=== PATIENT | female | born 1940 | race Caucasian/White ===

== ENCOUNTER 2017-12-24 08:27 | Emergency (ER) | payer OTHER ==
[2017-12-24 09:22] LABS: Bicarbonate 23 mEq/L (21-31); Glucose Level 243 mg/dL (65-120); Potassium 3.7 mEq/L (3.6-5.0); Sodium Level 136 mEq/L (135-145)
[2017-12-24 09:23] LABS: BUN Blood Urea Nitrogen 13 mg/dL (6-20); Magnesium 1.6 mg/dL (1.8-2.5)
[2017-12-24 09:27] LABS: Absolute Lymphocytes (CBC) 1.8 K/uL (0.7-4.9); Absolute Monocytes 0.4 K/uL (0.1-1.3); Absolute Neutrophil 4.2 K/uL (1.8-8.0); Basophils % 1.2 % (0-1.3); Eosinophils % 2.8 % (0-4.4); Hematocrit 43.9 % (36.0-45.0); Lymphocytes % 26.4 % (15.3-44.8); MCH 28.9 pg (27.0-35.0); MCV 86.3 fL (80-100); MPV 8.4 fL (7.6-11.3); Monocytes % 5.7 % (3.3-12.3); RBC Red Blood Cell Count 5.08 M/uL (3.86-4.86)
--- NOTE | 2017-12-24 09:30 | RAD REPORT ---
EXAM DESCRIPTION: RAD - Chest Single View - 12/24/2017 9:06 am CLINICAL HISTORY: Chest pain, hypertension COMPARISON: 10/27/2008 FINDINGS: Portable technique limits examination quality. The lungs are mildly emphysematous but grossly clear. The heart is normal in size. No displaced fract ures. IMPRESSION: No acute intrathoracic process suspected.
[2017-12-24 09:38] LABS: Protime INR 0.93
[2017-12-24] MEDS ORDERED: MAGNESIUM SULFATE 1 gm IVPB 1 GM/100 ML BAG IV ONE (09:47)
[2017-12-24 10:15] LABS: Urine Blood NEGATIVE (NEG); Urine Glucose 1+ (NEG); Urine Protein NEGATIVE (NEG); Urine pH 7.5 (5.0-7.0)
[2017-12-24 10:58] LABS: Urine Bacteria >50 /HPF (<20); Urine Culture Reflex Order REFLEXED; Urine RBC NONE SEEN /HPF (NONE SEEN)
--- NOTE | 2017-12-24 11:11 | ER ---
Nurse's Notes [facility] Name: Christiana Daniel Age: 77 yrs Sex: Female : 1940 Arrival Date: 12/24/2017 Time: 08:30 Bed 4 Private MD: Diagnosis: Paroxysmal atrial fibrillation Presentation: 12/24 08:41 Presenting complaint: EMS states: pt felt dizzy this morning while getting out of bed, sg reports palpitations, denies CP, SOB, Difficulty breathing, Denies N/V/D. Transition of care: patient was not received from another setting of care. Onset of symptoms was December 24, 2017. Initial Sepsis Screen: Does the patient meet any 2 criteria? RR > 20 per min. No. Patient's initial sepsis screen is negative. Does the patient have a suspected source of infection? No. Patient's initial sepsis screen is negative. Care prior to arrival: IV initiated. 20 GA, in the left hand. 08:41 Method Of Arrival: EMS: [facility] sg 08:41 Acuity: YARON 3 sg Historical: - Allergies: 08:46 No Known Allergies; sg - Home Meds: 08:46 Aspirin Oral [Active]; Bystolic oral for Hypertension, Ventricular Rate Control in sg Atrial Fibrillation [Active]; Celebrex Oral [Active]; - PMHx: 08:46 Atrial Fib; Hypertension; sg - PSHx: 08:46 Cardiac Ablation; sg - Immunization history:: Adult Immunizations up to date. - Social history:: Smoking status: Patient/guardian denies using tobacco. Screenin:49 Abuse screen: Denies threats or abuse. Denies injuries from another. Nutritional sg screening: No deficits noted. Tuberculosis screening: No symptoms or risk factors identified. Never had TB. Fall Risk None identified. Assessment: 08:49 General: Appears in no apparent distress. comfortable, well groomed, well developed, sg well nourished, Behavior is calm, cooperative, appropriate for age. Pain: Denies pain. Neuro: Level of Consciousness is awake, alert, obeys commands, Oriented to person, place, time, situation, Multimedia Engineer are equal bilaterally Moves all extremities. Full function Gait is steady, Speech is normal, Facial symmetry appears normal, pupils are PERRL. Reports dizziness. Cardiovascular: Heart tones S1 S2 present Capillary refill is brisk in bilateral fingers Patient's skin is warm and dry. Chest pain is denied. Respiratory: Airway is patent Respiratory effort is even, unlabored, Respiratory pattern is regular, symmetrical, Breath sounds are clear. GI: No signs and/or symptoms were reported involving the gastrointestinal system. : No signs and/or symptoms were reported regarding the genitourinary system. EENT: No signs and/or symptoms were reported regarding the EENT system. Derm: Skin is pink, warm \T\ dry. Musculoskeletal: No signs and/or symptoms reported regarding the musculoskeletal system. 09:00 Reassessment: pt daughter at bedside at this time. sg 09:40 Reassessment: Patient appears in no apparent distress at this time. Patient and/or sg family updated on plan of care and expected duration. Pain level reassessed. Patient is alert, oriented x 3, equal unlabored respirations, skin warm/dry/pink. updated on results and POC, pt stated understanding, pt reports her daughter stepped out to find coffee and will return shortly Patient states feeling better. 11:31 Reassessment: Patient appears in no apparent distress at this time. Patient and/or sv family updated on plan of care and expected duration. Pain level reassessed. Patient is alert, oriented x 3, equal unlabored respirations, skin warm/dry/pink. Patient states feeling better. Vital Signs: 08:40 BP 177 / 99; Pulse 73 MON; Resp 22 S; Temp 98.7; Pulse Ox 97% on R/A; Weight 111.13 kg sg (R); Pain 0/10; 09:18 BP 177 / 88; Pulse 63; Resp 18 S; Pulse Ox 98% on R/A; sg 10:00 BP 180 / 65; Pulse 52 MON; Resp 16; Pulse Ox 98% on R/A; Pain 0/10; sg 10:00 sg 11:30 BP 166 / 70; Pulse 53; Resp 16; Pulse Ox 97% ; sv 10:00 notified of pt VS sg Vitals: 08:40 Cardiac Rhythm Assessment Sinus rhythm. sg 09:18 Cardiac Rhythm Assessment Sinus arrythmia. sg 10:00 Cardiac Rhythm Assessment Sinus kasey. sg ED Course: 08:30 Patient arrived in ED. sv 08:37 Shay Landeros MD is Attending Physician. gs 08:40 Moise Devi RN is Primary Nurse. sg 08:40 Initial lab(s) drawn, by me, sent to lab. Maintain EMS IV. Dressing intact. Site clean sg \T\ dry. Gauge \T\ site: 20 G L Hand. 08:42 Triage completed. sg 08:47 Arm band placed on. EKG completed in triage. Results shown to MD. sg 08:50 Patient has correct armband on for positive identification. Bed in low position. Call sg light in reach. 09:07 XRAY Chest (1 view) In Process Unspecified. EDMS 11:10 Jon Castellon MD is Referral Physician. gs 11:31 No provider procedures requiring assistance completed. IV discontinued, intact, sv bleeding controlled, No redness/swelling at site. Pressure dressing applied. Administered Medications: 09:51 Drug: Magnesium Sulfate 1 grams Route: IVPB; Infused Over: 1 hrs; Site: left hand; sg Outcome: 11:10 Discharge ordered by MD. gs 11:31 Discharged to home via wheelchair, with family. sv 11:31 Condition: stable 11:31 Condition: improved 11:31 Discharge instructions given to patient, family, Instructed on discharge instructions, follow up and referral plans. Demonstrated understanding of instructions, follow-up care. 11:31 Patient left the ED. sv Addendum: 12/27/2017 10:52 Addendum: Culture Results: Positive urine culture. No further action required. Other: i w culture report was reviewed by JENNIFER Fernando, pt had no urinary complaints, no further action needed . Signatures: Dispatcher [employer] Kimberlee Larson RN RN sv Gay, Steven, RN RN sg Williams, Irene, RN RN Shay Landeros MD MD Corrections: (The following items were deleted from the chart) 12/24 09:51 08:41 Care prior to arrival: IV initiated. 20 GA, in the right antecubital area, sg 09:51 08:40 Maintain EMS IV. Dressing intact. Site clean \T\ dry. Gauge \T\ site: 20 G LAC. [facility] 09:52 08:41 Care prior to arrival: IV initiated. 20 GA, in the right hand, sg
--- NOTE | 2017-12-24 11:11 | EDPHYS ---
Physician Documentation [facility] Name: Christiana Daniel Age: 77 yrs Sex: Female : 1940 Arrival Date: 12/24/2017 Time: 08:30 Bed 4 Private MD: ED Physician Shay Landeros HPI: 12/24 11:31 This 77 yrs old Female presents to ER via EMS with complaints of Afib w/RVR. gs 11:31 The patient presents with a history of irregular heart beat, heart racing. Context: The gs symptoms occur at rest. Onset: The symptoms/episode began/occurred acutely, just prior to arrival. Duration: The patient or guardian reports a single episode, that is now resolved. Modifying factors: The symptoms are aggravated by nothing. The symptoms are alleviated by nothing. Associated signs and symptoms: Pertinent positives: lightheadedness, Pertinent negatives: chest pain. Severity of symptoms: At their worst the symptoms were severe in the emergency department the symptoms have resolved. The patient has experienced similar episodes in the past, a few times. 11:35 documented afib by ems. gs Historical: - Allergies: 08:46 No Known Allergies; sg - Home Meds: 08:46 Aspirin Oral [Active]; Bystolic oral for Hypertension, Ventricular Rate Control in sg Atrial Fibrillation [Active]; Celebrex Oral [Active]; - PMHx: 08:46 Atrial Fib; Hypertension; sg - PSHx: 08:46 Cardiac Ablation; sg - Immunization history:: Adult Immunizations up to date. - Social history:: Smoking status: Patient/guardian denies using tobacco. ROS: 11:31 All other systems are negative. gs Exam: 11:31 Head/Face: Normocephalic, atraumatic. Eyes: Pupils equal round and reactive to light, gs extra-ocular motions intact. Lids and lashes normal. Conjunctiva and sclera are non-icteric and not injected. Cornea within normal limits. Periorbital areas with no swelling, redness, or edema. ENT: Nares patent. No nasal discharge, no septal abnormalities noted. Tympanic membranes are normal and external auditory canals are clear. Oropharynx with no redness, swelling, or masses, exudates, or evidence of obstruction, uvula midline. Mucous membranes moist. Neck: Trachea midline, no thyromegaly or masses palpated, and no cervical lymphadenopathy. Supple, full range of motion without nuchal rigidity, or vertebral point tenderness. No Meningismus. Chest/axilla: Normal chest wall appearance and motion. Nontender with no deformity. No lesions are appreciated. Cardiovascular: Regular rate and rhythm with a normal S1 and S2. No gallops, murmurs, or rubs. Normal PMI, no JVD. No pulse deficits. Respiratory: Lungs have equal breath sounds bilaterally, clear to auscultation and percussion. No rales, rhonchi or wheezes noted. No increased work of breathing, no retractions or nasal flaring. Abdomen/GI: Soft, non-tender, with normal bowel sounds. No distension or tympany. No guarding or rebound. No evidence of tenderness throughout. Back: No spinal tenderness. No costovertebral tenderness. Full range of motion. Skin: Warm, dry with normal turgor. Normal color with no rashes, no lesions, and no evidence of cellulitis. MS/ Extremity: Pulses equal, no cyanosis. Neurovascular intact. Full, normal range of motion. Neuro: Awake and alert, GCS 15, oriented to person, place, time, and situation. Cranial nerves II-XII grossly intact. Motor strength 5/5 in all extremities. Sensory grossly intact. Cerebellar exam normal. Normal gait. 11:31 Constitutional: The patient appears alert, awake. 11:31 ECG was reviewed by the Attending Physician. Vital Signs: 08:40 BP 177 / 99; Pulse 73 MON; Resp 22 S; Temp 98.7; Pulse Ox 97% on R/A; Weight 111.13 kg sg (R); Pain 0/10; 09:18 BP 177 / 88; Pulse 63; Resp 18 S; Pulse Ox 98% on R/A; sg 10:00 BP 180 / 65; Pulse 52 MON; Resp 16; Pulse Ox 98% on R/A; Pain 0/10; sg 10:00 sg 11:30 BP 166 / 70; Pulse 53; Resp 16; Pulse Ox 97% ; sv 10:00 notified of pt VS sg MDM: 08:37 Patient medically screened. gs 11:31 Differential diagnosis: arrythmia, dehydration, electrolyte abnormality. Data reviewed: gs vital signs, nurses notes. 11:35 Response to treatment: the patient's symptoms have resolved after treatment, and as a gs result, I will discharge patient. Physician consultation: Jon Castellon MD regarding consult, patient's condition, and will see patient in office, tomorrow. 12/24 08:37 Order name: Basic Metabolic Panel; Complete Time: 09:42 gs 12/24 08:37 Order name: CBC with Diff; Complete Time: 09:42 gs 12/24 08:37 Order name: Magnesium; Complete Time: 09:42 gs 12/24 08:37 Order name: PT-INR; Complete Time: 10:18 gs 12/24 08:37 Order name: Troponin (emerg Dept Use Only); Complete Time: 09:42 gs 12/24 08:39 Order name: Urine Dipstick--Ancillary (enter results); Complete Time: 10:18 mw2 12/24 08:30 Order name: EKG; Complete Time: 08:31 sv 12/24 08:30 Order name: EKG - Nurse/Tech; Complete Time: 08:48 sv 12/24 08:37 Order name: XRAY Chest (1 view); Complete Time: 09:42 gs 12/24 08:37 Order name: Cardiac monitoring; Complete Time: 08:48 gs 12/24 08:37 Order name: IV Saline Lock; Complete Time: 08:48 gs 12/24 10:19 Order name: Urine Microscopic Only; Complete Time: 11:10 gs 12/24 11:00 Order name: Urine Culture EDNV 12/24 08:37 Order name: Labs collected and sent; Complete Time: 08:48 gs 12/24 08:37 Order name: O2 Per Protocol; Complete Time: 08:47 12/24 08:37 Order name: O2 Sat Monitoring; Complete Time: 08:47 12/24 08:37 Order name: Urine Dipstick-Ancillary (obtain specimen); Complete Time: 08:47 gs EC:31 Rate is 82 beats/min. Rhythm is regular. FL interval is normal. QRS interval is normal. gs T waves are Normal. No ST changes noted. Clinical impression: Abnormal EKG without significant change and pac's . Interpreted by me. Administered Medications: 09:51 Drug: Magnesium Sulfate 1 grams Route: IVPB; Infused Over: 1 hrs; Site: left hand; Disposition: 12/24/17 11:10 Discharged to Home. Impression: Paroxysmal atrial fibrillation. - Condition is Stable. - Discharge Instructions: Atrial Fibrillation. - Medication Reconciliation Form, Thank You Letter, Antibiotic Education, Prescription Opioid Use form. - Follow up: Jon Castellon MD; When: 1 - 2 days; Reason: Re-evaluation by your physician. Signatures: Dispatcher [employer] Kimberlee Larson RN RN sv Gay, Steven, RN RN sg Starr, Gregory, MD MD
--- NOTE | 2017-12-24 15:40 | EKG ---
Test Date: 2017-12-24 Test Time: 08:31:15 Clinical Recruiter: SWG MEASUREMENT RESULTS: Intervals: Rate: 82 NC: 140 QRSD: 86 QT: 390 QTc: 455 [place]: P: 5 NC: 140 QRS: 54 T: 37 INTERPRETIVE STATEMENTS: Sinus rhythm with premature supraventricular complexes Otherwise normal ECG Compared to ECG 10/28/2008 06:29:21 Atrial premature complex(es) now present Electronically Signed On 12-24-17 15:37:48 CDT by Jon Castellon
== END 2017-12-24 11:31 | disposition home or self-care (01) ==
LOC: ER 08:27
DX: I48.0 Paroxysmal atrial fibrillation (principal); Z79.82 Long term (current) use of aspirin
CPT/HCPCS: 36415; 71045; 80048; 83735; 84484; 85025; 85610; 87077; 87086; 87088; 87186; 93005; 96374; 99284; J3475; 81003; 81015

== ENCOUNTER 2017-12-26 14:19 | Observation (INO) | payer OTHER ==
[2017-12-26] MEDS ORDERED: NA CHLORIDE 0.9% 1,000 ML ONE (14:48)
[2017-12-26 14:58] LABS: Absolute Lymphocytes (CBC) 1.7 K/uL (0.7-4.9); Absolute Monocytes 0.4 K/uL (0.1-1.3); Absolute Neutrophil 5.5 K/uL (1.8-8.0); Eosinophils % 1.5 % (0-4.4); Hematocrit 43.9 % (36.0-45.0); Lymphocytes % 21.7 % (15.3-44.8); MCH 29.6 pg (27.0-35.0); MCV 85.8 fL (80-100); MPV 8.1 fL (7.6-11.3); Monocytes % 5.7 % (3.3-12.3); RBC Red Blood Cell Count 5.12 M/uL (3.86-4.86)
[2017-12-26 15:04] LABS: Protime INR 0.92
--- NOTE | 2017-12-26 16:01 | ER ---
Nurse's Notes [facility] Name: Christiana Daniel Age: 77 yrs Sex: Female : 1940 Arrival Date: 12/26/2017 Time: 14:22 Bed 4 Private MD: Patel Boo R Diagnosis: Chest pain, unspecified;Atrial fibrillation and flutter-history of;Syncope and collapse-near Presentation: 12/26 14:25 Presenting complaint: Patient states: I have a hx of A fib that comes and goes and at la1 0700 this morning I woke up with a pain in my left arm, dizziness and nausea. Transition of care: patient was not received from another setting of care. Onset of symptoms was December 26, 2017. Initial Sepsis Screen: Does the patient meet any 2 criteria? No. Patient's initial sepsis screen is negative. Does the patient have a suspected source of infection? No. Patient's initial sepsis screen is negative. Care prior to arrival: None. 14:25 Method Of Arrival: Wheelchair la1 14:25 Acuity: YARON 2 la1 Triage Assessment: 14:56 GI: Reports. hb Historical: - Allergies: 14:26 No Known Allergies; la1 - Home Meds: 16:01 metformin 500 mg Oral tab 1 tab 2 times per day [Active]; Celebrex 200 mg oral cap once hb daily [Active]; omeprazole 20 mg Oral cpDR 1 cap once daily [Active]; aspirin 81 mg oral TbEC once daily [Active]; Bystolic 5 mg oral tab once daily [Active]; magnesium oxide 250 mg Oral tab daily [Active]; - PMHx: 14:26 Atrial Fib; Hypertension; la1 - Immunization history:: Adult Immunizations up to date. - Social history:: Smoking status: Patient/guardian denies using tobacco. - Family history:: not pertinent. Screenin:54 Abuse screen: Denies threats or abuse. Denies injuries from another. Nutritional hb screening: No deficits noted. Tuberculosis screening: No symptoms or risk factors identified. Fall Risk None identified. Assessment: 14:40 General: Appears in no apparent distress. Behavior is calm, cooperative. Pain: Pain hb currently is 4 out of 10 on a pain scale. Neuro: Level of Consciousness is awake, alert, obeys commands, Oriented to person, place, time, situation. Cardiovascular: Heart tones S1 S2 present Capillary refill < 3 seconds Patient's skin is warm and dry. Respiratory: Airway is patent Trachea midline Respiratory effort is even, unlabored, Respiratory pattern is regular, symmetrical, Breath sounds are clear bilaterally. GI: Abdomen is non-distended, Bowel sounds present X 4 quads. Abd is soft and non tender X 4 quads. : No signs and/or symptoms were reported regarding the genitourinary system. EENT: No signs and/or symptoms were reported regarding the EENT system. Derm: No signs and/or symptoms reported regarding the dermatologic system. Skin is intact, is healthy with good turgor, Skin is pink, warm \T\ dry. Musculoskeletal: No signs and/or symptoms reported regarding the musculoskeletal system. 15:30 Reassessment: Patient appears in no apparent distress at this time. No changes from previously documented assessment. Patient and/or family updated on plan of care and expected duration. Pain level reassessed. Patient is alert, oriented x 3, equal unlabored respirations, skin warm/dry/pink. 16:20 Reassessment: Patient appears in no apparent distress at this time. No changes from previously documented assessment. Patient and/or family updated on plan of care and expected duration. Pain level reassessed. Patient is alert, oriented x 3, equal unlabored respirations, skin warm/dry/pink. 16:45 Reassessment: Attempted to call report to floor, receiving nurse unavailable. hb 17:00 Reassessment: Patient appears in no apparent distress at this time. Patient and/or hb family updated on plan of care and expected duration. Pain level reassessed. Patient is alert, oriented x 3, equal unlabored respirations, skin warm/dry/pink. 17:25 Reassessment: Attempted to call report to floor, receiving nurse unavailable. hb 18:00 Reassessment: Patient appears in no apparent distress at this time. Patient and/or hb family updated on plan of care and expected duration. Pain level reassessed. Patient is alert, oriented x 3, equal unlabored respirations, skin warm/dry/pink. 18:02 Reassessment: Report called to Charge Nurse CELESTE Andino. Vital Signs: 14:26 BP 172 / 63; Pulse 63; Resp 16; Temp 97.4; Pulse Ox 100% on R/A; Weight 92.08 kg; la1 Height 5 ft. 5 in. (165.10 cm); 15:46 BP 171 / 81; Pulse 60; Resp 15; Pulse Ox 98% on R/A; hb 16:45 BP 168 / 78; Pulse 54; Resp 16; Pulse Ox 100% on R/A; Pain 2/10; hb 17:45 BP 168 / 89; Pulse 49; Resp 16; Pulse Ox 100% on R/A; hb 14:26 Body Mass Index 33.78 (92.08 kg, 165.10 cm) la1 ED Course: 14:22 Patient arrived in ED. mr 14:23 Patel Boo MD is Private Physician. mr 14:25 Triage completed. la1 14:26 Arm band placed on left wrist. la1 14:28 Parish Adhikari MD is Attending Physician. nelda 14:40 Patient has correct armband on for positive identification. Placed in gown. Bed in low hb position. Call light in reach. Side rails up X 1. quality assurance monitor body on. Pulse ox on. NIBP on. 14:45 Elana Valenzuela, CELESTE is Primary Nurse. iw 14:48 Inserted saline lock: 22 gauge in left antecubital area, using aseptic technique. Blood hb collected. 14:53 Julia Tello, CELESTE is Primary Nurse. hb 15:49 X-ray completed. Portable x-ray completed in exam room. Patient tolerated procedure kp1 well. 15:50 XRAY Chest (1 view) In Process Unspecified. EDMS 15:58 Patel Boo MD is Hospitalizing Provider. nelda 16:41 CT completed. Patient moved to CT via stretcher. Patient moved back from CT. cw1 18:08 No provider procedures requiring assistance completed. Patient admitted, IV remains in hb place. Administered Medications: 14:50 Drug: NS 0.9% 1000 ml Route: IV; Rate: 125 ml/hr; Site: right antecubital; hb 17:04 Follow up: Response: No change in condition; IV Status: Infusion continued upon hb admission 14:53 Drug: NS 0.9% 500 ml Route: IV; Rate: bolus; Site: left antecubital; hb 15:30 Follow up: Response: No adverse reaction; No change in condition; IV Status: Completed hb infusion 16:36 Drug: Aspirin 162 mg Route: PO; hb 17:04 Follow up: Response: No adverse reaction hb 16:36 Drug: Lovenox 90 mg Route: Sub-Q; Site: abdomen; hb 17:04 Follow up: Response: No adverse reaction hb Outcome: 16:00 Decision to Hospitalize by Provider. nelda 18:08 Admitted to Med/surg accompanied by tech, family with patient, room 214, on monitor, hb Report called to Sina 18:08 Condition: stable 18:08 Instructed on the need for admit, Demonstrated understanding of instructions. 18:09 Patient left the ED. hb Signatures: Dispatcher [employer] EDSD Parish Adhikari MD MD cha Rivera, Maria mr Elana Valenzuela, RN Alma Morales cw1 Donovan Flynn RN RN la1 Julia Tello RN RN Daniella Malik kp1
--- NOTE | 2017-12-26 16:01 | EDPHYS ---
Physician Documentation [facility] Name: Christiana Daniel Age: 77 yrs Sex: Female : 1940 Arrival Date: 12/26/2017 Time: 14:22 Bed 4 Private MD: Patel Boo R ED Physician Parish Adhikari HPI: 12/26 14:44 This 77 yrs old Female presents to ER via Wheelchair with complaints of nelda Nausea, Dizziness, Arm Pain. 14:44 The patient presents to the emergency department with nausea, that is mild. Onset: The nelda symptoms/episode began/occurred 4 day(s) ago. Possible causes:. The symptoms are aggravated by movement, The symptoms are alleviated by remaining still, supine position. Associated signs and symptoms: Pertinent positives: nausea, vomiting. Associated signs and symptoms: Pertinent positives:. Severity of symptoms: At their worst the symptoms were mild moderate in the emergency department the symptoms have resolved. The patient has experienced similar episodes in the past, a few times. Historical: - Allergies: 14:26 No Known Allergies; la1 - Home Meds: 16:01 metformin 500 mg Oral tab 1 tab 2 times per day [Active]; Celebrex 200 mg oral cap once hb daily [Active]; omeprazole 20 mg Oral cpDR 1 cap once daily [Active]; aspirin 81 mg oral TbEC once daily [Active]; Bystolic 5 mg oral tab once daily [Active]; magnesium oxide 250 mg Oral tab daily [Active]; - PMHx: 14:26 Atrial Fib; Hypertension; la1 - Immunization history:: Adult Immunizations up to date. - Social history:: Smoking status: Patient/guardian denies using tobacco. - Family history:: not pertinent. ROS: 14:44 Constitutional: Negative for fever, chills, and weight loss, Eyes: Negative for injury, nelda pain, redness, and discharge, ENT: Negative for injury, pain, and discharge, Neck: Negative for injury, pain, and swelling, Respiratory: Negative for shortness of breath, cough, wheezing, and pleuritic chest pain, Abdomen/GI: Negative for abdominal pain, nausea, vomiting, diarrhea, and constipation, Back: Negative for injury and pain, : Negative for injury, bleeding, discharge, and swelling, MS/Extremity: Negative for injury and deformity, Skin: Negative for injury, rash, and discoloration, Neuro: Negative for headache, weakness, numbness, tingling, and seizure, Psych: Negative for depression, anxiety, suicide ideation, homicidal ideation, and hallucinations, Allergy/Immunology: Negative for hives, rash, and allergies, Endocrine: Negative for neck swelling, polydipsia, polyuria, polyphagia, and marked weight changes, Hematologic/Lymphatic: Negative for swollen nodes, abnormal bleeding, and unusual bruising. 14:44 Cardiovascular: Positive for chest pain, palpitations. Exam: 14:44 Constitutional: This is a well developed, well nourished patient who is awake, alert, nelda and in no acute distress. Head/Face: Normocephalic, atraumatic. Eyes: Pupils equal round and reactive to light, extra-ocular motions intact. Lids and lashes normal. Conjunctiva and sclera are non-icteric and not injected. Cornea within normal limits. Periorbital areas with no swelling, redness, or edema. ENT: Nares patent. No nasal discharge, no septal abnormalities noted. Tympanic membranes are normal and external auditory canals are clear. Oropharynx with no redness, swelling, or masses, exudates, or evidence of obstruction, uvula midline. Mucous membranes moist. Neck: Trachea midline, no thyromegaly or masses palpated, and no cervical lymphadenopathy. Supple, full range of motion without nuchal rigidity, or vertebral point tenderness. No Meningismus. Chest/axilla: Normal chest wall appearance and motion. Nontender with no deformity. No lesions are appreciated. Cardiovascular: Regular rate and rhythm with a normal S1 and S2. No gallops, murmurs, or rubs. Normal PMI, no JVD. No pulse deficits. Respiratory: Lungs have equal breath sounds bilaterally, clear to auscultation and percussion. No rales, rhonchi or wheezes noted. No increased work of breathing, no retractions or nasal flaring. Abdomen/GI: Soft, non-tender, with normal bowel sounds. No distension or tympany. No guarding or rebound. No evidence of tenderness throughout. Back: No spinal tenderness. No costovertebral tenderness. Full range of motion. Female : Normal external genitalia. Skin: Warm, dry with normal turgor. Normal color with no rashes, no lesions, and no evidence of cellulitis. MS/ Extremity: Pulses equal, no cyanosis. Neurovascular intact. Full, normal range of motion. Neuro: Awake and alert, GCS 15, oriented to person, place, time, and situation. Cranial nerves II-XII grossly intact. Motor strength 5/5 in all extremities. Sensory grossly intact. Cerebellar exam normal. Normal gait. Psych: Awake, alert, with orientation to person, place and time. Behavior, mood, and affect are within normal limits. 14:44 Musculoskeletal/extremity: DVT Exam: No signs of deep vein thrombosis. no pain, no swelling, no tenderness, negative Homans' sign noted on exam, no appreciated bluish discoloration, no erythema, no increased warmth. Vital Signs: 14:26 BP 172 / 63; Pulse 63; Resp 16; Temp 97.4; Pulse Ox 100% on R/A; Weight 92.08 kg; la1 Height 5 ft. 5 in. (165.10 cm); 15:46 BP 171 / 81; Pulse 60; Resp 15; Pulse Ox 98% on R/A; hb 16:45 BP 168 / 78; Pulse 54; Resp 16; Pulse Ox 100% on R/A; Pain 2/10; hb 17:45 BP 168 / 89; Pulse 49; Resp 16; Pulse Ox 100% on R/A; hb 14:26 Body Mass Index 33.78 (92.08 kg, 165.10 cm) la1 MDM: 14:28 Patient medically screened. [facility] 16:10 Data reviewed: vital signs, nurses notes, lab test result(s), EKG, radiologic studies, [facility] CT scan, plain films. 12/26 14:44 Order name: Basic Metabolic Panel; Complete Time: 16:11 [facility] 12/26 14:44 Order name: BNP; Complete Time: 15:54 [facility] 12/26 14:44 Order name: CBC with Diff; Complete Time: 15:54 [facility] 12/26 14:44 Order name: Ckmb; Complete Time: 16:11 [facility] 12/26 14:44 Order name: CPK; Complete Time: 16:11 [facility] 12/26 14:44 Order name: LFT's; Complete Time: 16:11 [facility] 12/26 14:44 Order name: Magnesium; Complete Time: 16:11 [facility] 12/26 14:44 Order name: PT-INR; Complete Time: 15:54 [facility] 12/26 14:44 Order name: Ptt, Activated; Complete Time: 15:54 [facility] 12/26 14:44 Order name: Troponin (emerg Dept Use Only); Complete Time: 15:54 [facility] 12/26 14:44 Order name: Lipase; Complete Time: 16:11 [facility] 12/26 14:44 Order name: TSH; Complete Time: 16:11 [facility] 12/26 14:44 Order name: Urine Culture [facility] 12/26 15:16 Order name: Urine Dipstick--Ancillary (enter results); Complete Time: 17:15 12/26 14:44 Order name: XRAY Chest (1 view); Complete Time: 17:15 [facility] 12/26 14:44 Order name: EKG; Complete Time: 14:45 [facility] 12/26 15:58 Order name: CT Head Brain wo Cont [facility] 12/26 16:07 Order name: Echo with Doppler [facility] 12/26 16:07 Order name: Basic Metabolic Panel [facility] 12/26 16:08 Order name: Basic Metabolic Panel [facility] 12/26 16:08 Order name: CBC with Automated Diff [facility] 12/26 16:08 Order name: CBC with Automated Diff [facility] 12/26 16:08 Order name: Troponin I [facility] 12/26 16:08 Order name: Troponin I [facility] 12/26 16:08 Order name: Troponin I [facility] 12/26 16:50 Order name: CT; Complete Time: 17:15 [facility] 12/26 14:44 Order name: Cardiac monitoring; Complete Time: 14:46 [facility] 12/26 14:44 Order name: EKG - Nurse/Tech; Complete Time: 14:46 [facility] 12/26 14:44 Order name: IV Saline Lock; Complete Time: 14:46 [facility] 12/26 14:44 Order name: Labs collected and sent; Complete Time: 14:46 [facility] 12/26 14:44 Order name: O2 Per Protocol; Complete Time: 14:46 [facility] 12/26 14:44 Order name: O2 Sat Monitoring; Complete Time: 14:46 [facility] 12/26 14:44 Order name: Urine Dipstick-Ancillary (obtain specimen); Complete Time: 17:53 [facility] 12/26 16:07 Order name: CONS Physician Consult [facility] 12/26 16:07 Order name: CONS Physician Consult [facility] 12/26 16:07 Order name: Regular [facility] 12/26 16:08 Order name: EKG Electrocardiogram [facility] 12/26 16:08 Order name: EKG Electrocardiogram [facility] 12/26 16:08 Order name: EKG Electrocardiogram [facility] 12/26 16:08 Order name: EKG Electrocardiogram [facility] Administered Medications: 14:50 Drug: NS 0.9% 1000 ml Route: IV; Rate: 125 ml/hr; Site: right antecubital; hb 17:04 Follow up: Response: No change in condition; IV Status: Infusion continued upon hb admission 14:53 Drug: NS 0.9% 500 ml Route: IV; Rate: bolus; Site: left antecubital; hb 15:30 Follow up: Response: No adverse reaction; No change in condition; IV Status: Completed hb infusion 16:36 Drug: Aspirin 162 mg Route: PO; hb 17:04 Follow up: Response: No adverse reaction hb 16:36 Drug: Lovenox 90 mg Route: Sub-Q; Site: abdomen; hb 17:04 Follow up: Response: No adverse reaction hb Disposition: 12/26/17 16:00 Hospitalization ordered by Patel Boo for Observation. Preliminary diagnosis are Chest pain, unspecified, Atrial fibrillation and flutter - history of, Syncope and collapse - near. - Bed requested for Telemetry/MedSurg (observation). - Status is Observation. hb - Condition is Stable. - Problem is new. - Symptoms have improved. UTI on Admission? No Signatures: Dispatcher [employer] EDAZ Parish Adhikari MD MD cha Attema, Lee RN RN la1 Julia Tello RN RN Kristina Lee
[2017-12-26] MEDS ORDERED: Morphine 2 MG/2 ML SYR IV PRN (16:04)
[2017-12-26] MEDS ORDERED: ONDANSETRON 4 MG/2 ML VIAL IV PRN (16:04)
[2017-12-26] MEDS ORDERED: ACETAMINOPHEN 500 MG TAB PO PRN (16:04)
[2017-12-26 16:09] LABS: Albumin 4.2 g/dL (3.2-5.5); Bilirubin Direct 0.1 mg/dL (0-0.2); Bilirubin Total 0.7 mg/dL (0.3-1.2); CKMB Creatine Kinase MB 1.6 ng/ml (0.3-4.0); Magnesium 1.9 mg/dL (1.8-2.5); Protein, Total 7.2 g/dL (6.0-8.3); Thyroid Stimulating Hormone 1.71 uIU/mL (0.34-5.60)
[2017-12-26] MEDS ORDERED: ASPIRIN 81 MG CHEWABLE TABLET ONE (16:34)
[2017-12-26] MEDS ORDERED: ENOXAPARIN 100 MG/ML SYR SQ ONE (16:35)
--- NOTE | 2017-12-26 16:50 | RAD REPORT ---
EXAM DESCRIPTION: CT - Head Brain Wo Cont - 12/26/2017 4:43 pm CLINICAL HISTORY: Dizziness, syncope COMPARISON: 10/27/2008 TECHNIQUE: All CT scans are performed using dose optimization technique as appropriate and may inclu de automated exposure control or mA/KV adjustment according to patient size. FINDINGS: No intracranial hemorrhage, hydrocephalus or extra-axial fluid collection.No areas of brai n edema or evidence of midline shift. The paranasal sinuses and mastoids are clear. The calvarium is intact. IMPRESSION: No acute intracranial abnormality.
--- NOTE | 2017-12-26 16:51 | RAD REPORT ---
EXAM DESCRIPTION: RAD - Chest Single View - 12/26/2017 3:52 pm CLINICAL HISTORY: Chest pain. COMPARISON: 12/24/2017 FINDINGS: Portable technique limits examination quality. The lungs are grossly clear. The heart is upper limit of normal in size. No displaced fractures. IMPRESSION: No acute intrathoracic process suspected.
[2017-12-26 16:59] LABS: Urine Blood TRACE (NEG); Urine Glucose NEGATIVE (NEG); Urine Protein NEGATIVE (NEG); Urine pH 6.5 (5.0-7.0)
[2017-12-26] MEDS: ENOXAPARIN 100 MG/ML SYR SQ SCH (20:21)
[2017-12-26] MEDS: MAGNESIUM OXIDE 400 MG TAB PO SCH (20:21)
[2017-12-27 06:47] LABS: Absolute Lymphocytes (CBC) 2.4 K/uL (0.7-4.9); Absolute Monocytes 0.5 K/uL (0.1-1.3); Absolute Neutrophil 4.2 K/uL (1.8-8.0); Basophils % 1.1 % (0-1.3); Eosinophils % 3.8 % (0-4.4); Hematocrit 41.4 % (36.0-45.0); Lymphocytes % 32.3 % (15.3-44.8); MCH 29.6 pg (27.0-35.0); MCV 86.4 fL (80-100); MPV 8.4 fL (7.6-11.3); Monocytes % 6.7 % (3.3-12.3)
[2017-12-27 06:56] LABS: BUN Blood Urea Nitrogen 12 mg/dL (6-20); Bicarbonate 24 mEq/L (21-31); Glucose Level 156 mg/dL (65-120); Potassium 4.2 mEq/L (3.6-5.0); Sodium Level 139 mEq/L (135-145)
[2017-12-27] MEDS ORDERED: ASPIRIN EC 81 MG TAB PO SCH (09:00)
[2017-12-27] MEDS: MAGNESIUM OXIDE 400 MG TAB PO SCH (09:00)
[2017-12-27] MEDS: ENOXAPARIN 100 MG/ML SYR SQ SCH (09:00)
[2017-12-27] MEDS ORDERED: NEBIVOLOL HCL 5 MG TAB PO SCH (09:00)
--- NOTE | 2017-12-27 16:10 | EKG ---
Test Date: 2017-12-26 Test Time: 14:36:33 Chemistry Technologist: TEMITOPE MEASUREMENT RESULTS: Intervals: Rate: 61 LA: 192 QRSD: 80 QT: 428 QTc: 430 [place]: P: LA: 192 QRS: 166 T: 142 INTERPRETIVE STATEMENTS: Suspect arm lead reversal, interpretation assumes no reversal Normal sinus rhythm Lateral infarct, age undetermined Inferior infarct, age undetermined Abnormal ECG Compared to ECG 12/24/2017 08:31:15 Myocardial infarct finding now present Atrial premature complex(es) no longer present Electronically Signed On 12-27-17 16:10:02 CDT by Ruddy June
--- NOTE | 2017-12-28 00:21 | HP ---
Date of Admission: 12/26/2017 Final Diagnoses: 1.Dizziness. 2.History of intermittent atrial fibrillation. 3.Type 2 diabetes. 4.Hypertension. History: This patient was brought to the emergency room because of dizziness. The patient did not h ave any syncope. The patient was seen in the emergency room. I discussed the case with the ER physi adrián, however, he was reluctant to discharge the patient. The patient was admitted for observation. There was no history of fever, chills, or any other generalized symptoms. Her CAT scan was normal. Troponin was normal. She did not have chest pain. Past Medical History: Positive for: 1.Osteoarthritis. 2.Intermittent atrial fibrillation with recent episode. 3.Hypertension. 4.Mild diabetes mellitus. Family History: Noncontributory. Personal History: Nonsmoker. Home Medicines: Bystolic, omeprazole, metformin, Celebrex, magnesium, aspirin. Physical Examination: General: Revealed fully alert and oriented asymptomatic female 77 years old. Vital Signs: Normal. HEENT: Negative. Neck: Supple. JVD negative. Chest: Clear. Heart: Regular. Abdomen: Soft, nontender. Extremities: No edema. Neurological: No deficits. Laboratory Data: CAT scan of the head and chest x-ray negative. Assessment: 1.Dizziness. 2.History of intermittent atrial fibrillation. 3.Hypertension. 4.Osteoarthritis. 5.Type 2 diabetes. Plan: The patient was admitted for observation and seen by Cardiology Service for the following day. It was felt that the patient was stable for discharge, and the patient discharged to follow up with Dr. Sherman in the office for her intermittent atrial fibrillation. JONAS/JAYJAY Voice ID: [id number]
--- NOTE | 2017-12-28 00:51 | CON ---
Date of Consultation: 12/27/2017 Reason For Consultation: Atrial fibrillation and near syncope. History Of Present Illness: Ms. Daniel is a 77-year-old white woman. We have seen her before in the past and has had a negative cardiac workup before. She has had atrial fibrillation before, but she came in this time with near-syncope, chest pain, atrial fibrillation, nausea, as well as headache . She was found in atrial fibrillation that has since I saw her has resolved after receiving beta-bl ockers in the emergency room. She has a history of hypertension, gastroesophageal reflux disease. Past Medical History: Negative. Allergies: NONE. Review of Systems: Negative. Social History: Negative. Family History: Noncontributory. Medications: Include aspirin, Celebrex, magnesium, Bystolic, metformin, and Prilosec. Physical Examination: Vital Signs: Stable. She was in sinus rhythm with some PACs. HEENT: Negative. Neck: Supple, no bruit. Chest: Clear. Cardiac: Exam revealed a regular rhythm and rate without any murmurs, gallops, or rubs. Abdomen: Benign. Extremities: Revealed no clubbing, cyanosis, or edema. Diagnostic Data: Her EKG shows sinus tachycardia. Chest x-ray is negative. CT of the head was nega tive. Glucose is 174. BNP, CPKs, MBs, and troponin were negative. Impression And Plan: Recurrent atrial fibrillation. I think the patient needs to continue her aspir in, increase her Bystolic. She has a normal rhythm now and they had to do an echocardiogram and a [place] in my office, and I will see her after that. Depending what her Benjamin score is and her echo, ailyn urban may have to go to on Eliquis or Xarelto. She had taken Coumadin at one point. She can go home whe never it is okay with Dr. Boo. Her blood pressure is well controlled. She has diabetes that is fa irly well controlled on metformin, and she has gastroesophageal reflux disease that is controlled on Prilosec. She has arthritis for which she takes Celebrex and apparently had a low magnesium in the e mergency room. Her first visit few days ago and her Mag was supplemented. She was supposed to see susan urban in the office on Thursday, but there were some insurance issues, so she did not have her come see me next week. NB/MODL Voice ID: [id number] Report ID: [id number]
== END 2017-12-27 11:34 | disposition home or self-care (01) ==
LOC: ER 14:19 → ERHOLD 16:00 → 2ND 17:57
PROVIDERS: ADMIT Internal Medicine; ATTEND Internal Medicine
DX: R42 Dizziness and giddiness (principal); I48.91 Unspecified atrial fibrillation; E11.9 Type 2 diabetes mellitus without complications; I10 Essential (primary) hypertension; M19.90 Unspecified osteoarthritis, unspecified site; Z79.82 Long term (current) use of aspirin
CPT/HCPCS: 36415; 70450; 71045; 80048; 80076; 81003; 82550; 82553; 83690; 83735; 83880; 84443; 84484; 85025; 85610; 85730; 87077; 87086; 87088; 87186; 93005; 96360; 96361; 96372; 99285; G0378; J1650; J7030